=== PATIENT | female | born 1970 | race Two or more races ===

== ENCOUNTER → 2017-05-25 | Outpatient (CLI) | payer OTHER | END | disposition home or self-care (01) | LOC: RAD 501 10:25 | DX: M51.36 Other intervertebral disc degeneration, lumbar region (principal); M70.61 Trochanteric bursitis, right hip; J45.909 Unspecified asthma, uncomplicated; E11.9 Type 2 diabetes mellitus without complications; I10 Essential (primary) hypertension; M41.9 Scoliosis, unspecified ==